=== PATIENT | male | born 1985 | race Two or more races ===

== ENCOUNTER 2023-06-30 11:31 | Emergency (ER) | payer MEDICAID, OTHER ==
[~2023-06-30] VITALS: Ht 180.3 cm; Wt 61.0 kg
[2023-06-30 11:38] VITALS: O2SAT 99
[2023-06-30] MEDS ORDERED: ACETAMINOPHEN 325MG TABLET PO ONE (14:45)
[2023-06-30] MEDS ORDERED: AMOX1TAB16 MT ×3 (14:55→14:56)
[2023-06-30] MEDS ORDERED: KETOROLAC 30MG/ML VIAL IM ONE (15:15)
[2023-06-30] MEDS ORDERED: ACET-2708 MT (15:24)
[2023-06-30] MEDS ORDERED: NAPR-681 MT (15:24)
[2023-06-30] MEDS ORDERED: TETANUS, DIPHTHERIA, PERTUSSIS VAC/PF 0.5ML (>10YR OLD) IM ONE (15:30)
[2023-06-30 15:43] VITALS: BP 132/78; PULSE 85; RESP 18; TEMP 98.3
== END 2023-06-30 15:44 | disposition home or self-care (01) ==
LOC: ER 11:31
DX: S02.609A Fracture of mandible, unspecified, initial encounter for closed fracture (principal); X58.XXXA Exposure to other specified factors, initial encounter; Y93.89 Activity, other specified; Y92.89 Other specified places as the place of occurrence of the external cause; Y99.8 Other external cause status
CPT/HCPCS: 70450; 70486; 90715; 90471; 96372; 99285; J1885; Z7610